=== PATIENT | female | born 1955 | race Caucasian/White ===

== ENCOUNTER 2016-10-28 11:56 | Emergency (ER) | payer BC ==
[2016-10-28 12:03] VITALS: TEMP 97.8; BMI 26.6
[2016-10-28] MEDS ORDERED: SODIUM CHLORIDE 1,000 ML IV STA (12:25)
[2016-10-28] MEDS ORDERED: ONDANSETRON 4 MG/2 ML VIAL IVPUSH ONE (12:25)
[2016-10-28] MEDS ORDERED: ACETAMINOPHEN 1000 MG/100 ML VIAL (NON FORMULARY) IVPB ONE (12:25)
[2016-10-28] MEDS ORDERED: ACETAMINOPHEN INJECTION 100 ML IVPB ONE (12:49)
[2016-10-28] MEDS ORDERED: ONDANSETRON 4 MG/2 ML VIAL ONE (12:49)
--- NOTE | 2016-10-28 13:00 | PDOC ---
History of Present Illness - General Chief Complaint: Headache Stated Complaint: NAUSEA, HEAD PRESSURE Time Seen by Provider: 10/28/16 11:59 History Source: Patient Exam Limitations: No Limitations - History of Present Illness Initial Comments: 10/28/16 12:31 61-year-old female presents to the emergency department with complaints of generalized throbbing pressure that began 3 days ago and has worsened in severity. Patient also complaining now of nausea generalized fatigue, and increased anxiety. Patient states also was switched from Paxil to her Prozac this week secondary to waking. Patient has no complaints of chest pain, shortness of breath, visual changes, dizziness, or abdominal pain. Patient also denies recent head injury, recent surgery, or recent illness. Timing/Duration: reports: constant Severity: Yes: moderate Associated Symptoms: reports: nausea/vomiting. denies: slurred speech, trouble walking, vision changes, weakness Past History - Travel Traveled outside of the country in the last 30 days: No - Past Medical History Allergies/Adverse Reactions: Allergies Allergy/AdvReac Type Severity Reaction Status Date / Time Penicillins Allergy Verified 10/28/16 12:03 Home Medications: Ambulatory Orders Atenolol [Tenormin -] 25 mg PO DAILY 10/28/16 Celecoxib 200 mg PO BID 10/28/16 Fluoxetine HCl 40 mg PO DAILY 10/28/16 Folic Acid 1 mg PO DAILY 10/28/16 Methotrexate [Mexate -] 2.5 mg PO WEEKLY 10/28/16 Sulfamethoxazole/Trimethoprim [Bactrim Ds -] 1 tab PO BID #10 tablet 10/28/16 [address]alazine [Sulfasalazine Dr] 500 mg PO BID 10/28/16 Cancer: Yes (cervical) Disorders: Yes (one kidney) HTN: Yes Psychiatric Problems: Yes (anxiety,depression) - Psycho/Social/Smoking Cessation Hx Suicidal Ideation: No Smoking History: Never smoked Information on smoking cessation initiated: No Hx Alcohol Use: No Drug/Substance Use Hx: No Substance Use Type: None Patient Lives Alone: No Lives with/in: son Neuro Specific PMHX - Complaint Specific PMHX Migraine: No Neuropathy: No Review of Systems - Review of Systems Able to Perform ROS?: No Constitutional: Yes: Weakness (mild generalized) HEENTM: No: Symptoms Reported, Blurred Vision Respiratory: No: Symptoms reported Cardiac (ROS): No: Symptoms Reported ABD/GI: Yes: Nausea : No: Symptoms Reported Musculoskeletal: No: Symptoms Reported Integumentary: No: Symptoms Reported Neurological: Yes: Headache. No: Numbness, Weakness, Dizziness Endocrine: No: Symptoms Reported Hematologic/Lymphatic: No: Symptoms Reported *Physical Exam - Vital Signs Last Vital Signs Temp Pulse Resp BP Pulse Ox 97.8 F 79 19 154/88 100 10/28/16 12:01 10/28/16 12:01 10/28/16 12:10/28/16 12:10/28/16 12:01 - Physical Exam General Appearance: Yes: Nourished, Appropriately Dressed. No: Apparent Distress HEENT: positive: EOMI, BRIAN, TMs Normal, Pharynx Normal. negative: Pale Conjunctivae Neck: positive: Supple. negative: Tender, Decreased range of motion Respiratory/Chest: positive: Lungs Clear, Normal Breath Sounds. negative: Respiratory Distress, Accessory Muscle Use Cardiovascular: positive: Regular Rhythm, Regular Rate. negative: Murmur Gastrointestinal/Abdominal: positive: Soft. negative: Tenderness Extremity: positive: Normal Capillary Refill. negative: Pedal Edema Integumentary: positive: Normal Color, Warm, Moist Neurologic: positive: Motor Strength 5/5 (ambulatory). negative: Normal Mood/ Affect (anxious) ED Treatment Course - LABORATORY CBC & Chemistry Diagram: 10/28/16 13:05 10/28/16 13:05 - RADIOLOGY Radiology Studies Ordered: Category Date Time Status HEAD CT WITHOUT CONTRAST [CT] Stat CT Scan 10/28/16 12:25 Ordered CHEST X-RAY PORTABLE* [RAD] Stat Radiology 10/28/16 12:25 Completed Medical Decision Making - Medical Decision Making 10/28/16 13:06 Patient here for evaluation of headache for the past 2 days worsening severity. Patient states has not taking anything for the above and feels her medication changed from Paxil to Prozac is the cause of her problem. Patient complains of mild generalized weakness along with nausea patient hasn't had no acute findings. Patient ordered for labs, cardiac workup, head CT, IV fluids, urine IV Tylenol and Zofran. 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 10/28/16 14:08 Laboratory Tests 10/28/16 10/28/16 10/28/16 13:05 13:05 13:05 WBC 4.2 Hgb 12.8 Hct 38.7 RDW 15.7 H D Plt Count 193 D Neutrophils % 64.9 Sodium 140 Potassium 4.0 Chloride 104 Carbon Dioxide 28 Anion Gap 8 Creatinine 0.7 Creat Clearance w eGFR > 60 Random Glucose 91 Calcium 8.8 Magnesium 2.2 ALT 16 Alkaline Phosphatase 89 Troponin I < 0.02 Urine Ketones Negative Urine Nitrite Negative Urine Bilirubin Negative Ur Leukocyte Esterase 1+ H D Head CT shows no acute intracranial hemorrhage, mass effect or hydrocephalus. Noted was a single sphenoid sinus an anatomic variant with small fluid level and mild mucosal thickening. Patient on exam had no tenderness over the sinuses or complaints of nasal congestion or rhinorrhea 10/28/16 14:30 Laboratory Tests 10/28/16 13:05 Ur Leukocyte Esterase 1+ H D Urine WBC 34 Urine cx collected and sent. Pt states feeling much better. Discharge home with bactrim x3 days. No previous UA cx noted in computer. 10/28/16 14:36 *DC/Admit/Observation/Transfer Diagnosis at time of Disposition: UTI (urinary tract infection) Qualifiers: Urinary tract infection type: acute cystitis Hematuria presence: without hematuria Qualified Code(s): N30.00 - Acute cystitis without hematuria UTI (urinary tract infection) Qualifiers: Urinary tract infection type: acute cystitis Hematuria presence: without hematuria Qualified Code(s): N30.00 - Acute cystitis without hematuria - Discharge Dispostion Disposition: HOME Condition at time of disposition: Improved - Prescriptions Prescriptions: Sulfamethoxazole/Trimethoprim [Bactrim Ds -] 1 tab PO BID #10 tablet - Referrals Referrals: Deja Reyes MD [Primary Care Provider] - - Patient Instructions Printed Discharge Instructions: DI for Urinary Tract Infection (UTI) Additional Instructions: Please take antibiotics as prescribed and if symptoms continue or worsen please return to the ED . otherwise follow up with her primary care physician drink plenty of fluids.
[2016-10-28 13:21] LABS: BASOPHIL 0.9 % (0-2.0); EOSINOPHIL 3.1 % (0-4.5); MCH 30.7 pg (25.7-33.7); MEAN CELL VOLUME 93.1 fl (80-96); MEAN PLT VOLUME 8.1 fl (7.5-11.1); NEUTROPHILS 64.9 % (42.8-82.8); PLATELET COUNT 193 K/MM3 (134-434); RDW 15.7 % (11.6-15.6); WHITE BLOOD COUNT 4.2 K/mm3 (4.0-10.0)
[2016-10-28 13:27] LABS: URINE APPEARANCE CLEAR; URINE BILIRUBIN NEGATIVE (NEGATIVE); URINE BLOOD NEGATIVE (NEGATIVE); URINE COLOR LT. YELLOW; URINE GLUCOSE (UA) NEGATIVE (NEGATIVE); URINE KETONE NEGATIVE (NEGATIVE); URINE NITRITE NEGATIVE (NEGATIVE); URINE PROTEIN NEGATIVE (NEGATIVE); URINE UROBILINOGEN 0.2 mg/dL (0.2-1.0)
[2016-10-28 13:28] LABS: URINE LEUK ESTERASE 1+ (NEGATIVE)
[2016-10-28 13:53] LABS: ALBUMIN 4.3 g/dl (3.4-5.0); ANION GAP 8 (8-16); BILIRUBIN,TOTAL 0.6 mg/dL (0.2-1.0); CALCIUM 8.8 mg/dL (8.5-10.1); CO2 28 mmol/L (21-32); CREATININE 0.7 mg/dL (0.55-1.02); GLUCOSE,RANDOM 91 mg/dL (74-106); MAGNESIUM 2.2 mg/dL (1.8-2.4); SGOT/AST 11 U/L (15-37); SGPT/ALT 16 U/L (12-78)
[2016-10-28 13:56] LABS: ALK PHOS 89 U/L (45-117); CPK 60 IU/L (26-192); TROPONIN I < 0.02 ng/ml (0.00-0.05)
[2016-10-28 14:09] LABS: URINE BACTERIA RARE /hpf (NONE SEEN); URINE MUCUS RARE; URINE RBC <1 /hpf (0-3); URINE WBC 34 /hpf (3-5)
[2016-10-28 14:52] VITALS: BP 148/89; PULSE 66
--- NOTE | 2016-10-29 13:22 | EKG ---
Test Reason : Blood Pressure : / mmHG Vent. Rate : 066 BPM Atrial Rate : 066 BPM P-R Int : 172 ms QRS Dur : 066 ms QT Int : 444 ms P-R-T Axes : 049 014 030 degrees QTc Int : 465 ms NORMAL SINUS RHYTHM BASELINE ARTIFACTS LOW VOLTAGE QRS BORDERLINE ECG WHEN COMPARED WITH ECG OF 21-MAY-2010 14:22, NO SIGNIFICANT CHANGE WAS FOUND REPEAT EKG IF CLINICALLY INDICATED Confirmed by MANE ESPARZA MD ([id number]) on 10/29/2016 1:22:01 PM Referred By: Confirmed By:MANE ESPARZA MD
== END 2016-10-28 14:51 | disposition home or self-care (01) ==
LOC: JER 11:56
PROC: 3E033NZ Introduction of Analgesics, Hypnotics, Sedatives into Peripheral Vein, Percutaneous Approach (ICD-10-PCS; principal; 2016-10-28)
PROC: 3E033GC Introduction of Other Therapeutic Substance into Peripheral Vein, Percutaneous Approach (ICD-10-PCS; 2016-10-28)
DX: N30.00 Acute cystitis without hematuria (principal); I10 Essential (primary) hypertension; F41.8 Other specified anxiety disorders; Z90.5 Acquired absence of kidney
CPT/HCPCS: 36415; 70450-TC; 71010-TC; 80053; 81003; 81015; 83735; 84484; 85025; 87086; 93005; 93010; 99283-25

== ENCOUNTER 2018-07-01 16:52 | Observation (INO) | payer BC ==
[2018-07-01 17:09] VITALS: BMI 24.0
--- NOTE | 2018-07-01 17:29 | PDOC ---
History of Present Illness - General Chief Complaint: Syncope/Near Syncope Stated Complaint: FAINTING, NAUSEA, VOMITTING Time Seen by Provider: 07/01/18 17:09 - History of Present Illness Initial Comments: 63yo F with PMH of HTN, tachyarrhythmia s/p ablation, cervical CA, depression presenting after a syncopal episodes. Patient states that around 3:30pm, she got up from the couch and suddenly felt very faint. The episode occurred around 3:30-4pm as the patient was getting up from the couch. Patient describes feeling lightheaded and sat back down on the couch. She believes she lost consciousness for a couple seconds but there were no witnesses. Reports urinary incontinence and significant diaphoresis during the episode. Made her way to the bathroom and had an episode of diarrhea. Patient also felt faint at that time, so she laid on the floor in case she might fall. Patient has had previous episodes of syncope, most recently six years ago also with associated urinary incontinence, nausea, vomiting, and diaphoresis, but no diarrhea. No history of seizure. Patient endorses one month of weakness, palpitations, and dyspnea on exertion. Had the flu three weeks ago and was treated with tamiflu. Denies fever , shortness of breath, or chest pain. PCP: Dr. Reyes Cardio: Dr. Wheatley Past History - Past Medical History Allergies/Adverse Reactions: Allergies Allergy/AdvReac Type Severity Reaction Status Date / Time Penicillins Allergy Verified 07/01/18 17:04 Home Medications: Ambulatory Orders Atenolol [Tenormin -] 25 mg PO DAILY 10/28/16 Celecoxib 200 mg PO BID 10/28/16 Fluoxetine HCl 40 mg PO DAILY 10/28/16 Folic Acid 1 mg PO DAILY 10/28/16 Methotrexate [Mexate -] 2.5 mg PO WEEKLY 10/28/16 Sulfamethoxazole/Trimethoprim [Bactrim Ds -] 1 tab PO BID #10 tablet 10/28/16 [address]ulf[address]alazine [Sulfasalazine Dr] 500 mg PO BID 10/28/16 Cancer: Yes (cervical) Disorders: Yes (one kidney) HTN: Yes Psychiatric Problems: Yes (anxiety,depression) - Suicide/Smoking/Psychosocial Hx Smoking History: Current some day smoker Number of Cigarettes Smoked Daily: 2 Information on smoking cessation initiated: No Hx Alcohol Use: No Drug/Substance Use Hx: No Substance Use Type: None Review of Systems - Review of Systems Comments:: Constitutional: no fever, +diaphoresis HEENT: no throat pain, no dysphagia Cardiovascular: no chest pain, +palpitations Respiratory: no cough, no shortness of breath Gastrointestinal: +nausea, +vomiting Genitourinary: no dysuria, no frequency Musculoskeletal: no myalgia, no arthralgia Skin: no rash, no itching Neurologic: no headache, +weakness *Physical Exam - Vital Signs Last Vital Signs Temp Pulse Resp BP Pulse Ox 98.3 F 67 16 187/83 H 98 07/01/18 17:00 07/01/18 17:00 07/01/18 17:00 07/01/18 17:00 07/01/18 17:10 - Physical Exam Comments: General: Awake, alert, and fully oriented, in no acute distress Head: No signs of trauma Eyes: EOMI, sclera anicteric ENT: Moist mucus membranes Neck: Normal ROM, supple Lungs: Lungs clear, Normal breath sounds Cardio: Regular rhythm, S1 and S2 present Abdomen: Soft, nontender. No guarding, no rebound, no masses Extremities: Normal range of motion, Distal pulses present SKIN: Warm, Dry, normal turgor Neurologic: Cranial nerves II through XII grossly intact ED Treatment Course - LABORATORY CBC & Chemistry Diagram: 07/01/18 17:35 07/01/18 17:35 Medical Decision Making - Medical Decision Making 63yo F with PMH of HTN, cervical CA, depression presenting after a syncopal episodes. DDX including but not limited to vasovagal syncope, cardiogenic syncope, metabolic syncope, neurogenic syncope, postural syncope, seizure Labs EKG, CXR 1L NS, 10mg Reglan 07/01/18 17:34 EKG: rate 63, QTc 448, NSR BP Laying 158/87 BP Standing 145/104 Positive for orthostatic hypotension given fall in diastolic > 10mmHg 07/01/18 17:56 CBC WBC 6.0 K/mm3 (4.0-10.0) 07/01/18 17:35 RBC 4.93 M/mm3 (3.60-5.2) 07/01/18 17:35 Hgb 14.3 GM/dL (10.7-15.3) 07/01/18 17:35 Hct 43.0 % (32.4-45.2) 07/01/18 17:35 MCV 87.3 fl (80-96) 07/01/18 17:35 MCH 29.1 pg (25.7-33.7) 07/01/18 17:35 MCHC 33.3 g/dl (32.0-36.0) 07/01/18 17:35 RDW 15.0 % (11.6-15.6) 07/01/18 17:35 Plt Count 201 K/MM3 (134-434) 07/01/18 17:35 MPV 8.6 fl (7.5-11.1) 07/01/18 17:35 Absolute Neuts (auto) 4.7 K/mm3 (1.5-8.0) 07/01/18 17:35 Neutrophils % 77.9 % (42.8-82.8) D 07/01/18 17:35 Lymphocytes % 15.8 % (8-40) D 07/01/18 17:35 Monocytes % 4.3 % (3.8-10.2) 07/01/18 17:35 Eosinophils % 1.5 % (0-4.5) 07/01/18 17:35 Basophils % 0.5 % (0-2.0) 07/01/18 17:35 Nucleated RBC % 0 % (0-0) 07/01/18 17:35 No anemia or leukocytosis CMP Sodium 140 mmol/L (136-145) 07/01/18 17:35 Potassium 4.4 mmol/L (3.5-5.1) 07/01/18 17:35 Chloride 105 mmol/L (98-107) 07/01/18 17:35 Carbon Dioxide 29 mmol/L (21-32) 07/01/18 17:35 Anion Gap 6 MMOL/L (8-16) L 07/01/18 17:35 BUN 19 mg/dL (7-18) H 07/01/18 17:35 Creatinine 0.9 mg/dL (0.55-1.3) 07/01/18 17:35 Creat Clearance w eGFR 63.04 (>60) 07/01/18 17:35 Random Glucose 106 mg/dL (74-106) 07/01/18 17:35 Calcium 9.0 mg/dL (8.5-10.1) 07/01/18 17:35 Total Bilirubin 0.6 mg/dL (0.2-1) 07/01/18 17:35 AST 11 U/L (15-37) L 07/01/18 17:35 ALT 16 U/L (13-61) 07/01/18 17:35 Alkaline Phosphatase 93 U/L (45-117) 07/01/18 17:35 Creatine Kinase 44 U/L (26-192) 07/01/18 17:35 Troponin I < 0.02 ng/ml (0.00-0.05) 07/01/18 17:35 Total Protein 7.3 g/dl (6.4-8.2) 07/01/18 17:35 Albumin 4.1 g/dl (3.4-5.0) 07/01/18 17:35 Lipase 172 U/L (73-393) 07/01/18 17:35 TSH 1.72 uIU/ml (0.358-3.74) 07/01/18 17:35 Tpn undetectable TSH is within normal limits Electrolytes unremarkable CXR without acute pathology, my impression 07/01/18 18:[address] Sheppard who is covering for Dr. Wheatley's patients who recommended patient for telemetry. 07/01/18 19:03 Discussed case with SOHEILA Castellanos who accepted patient for admission under Dr. López 07/01/18 19:23 *DC/Admit/Observation/Transfer Diagnosis at time of Disposition: Syncope Qualifiers: Syncope type: unspecified Qualified Code(s): R55 - Syncope and collapse - Discharge Dispostion Condition at time of disposition: Guarded Decision to Admit order: Yes - Referrals - Patient Instructions - Post Discharge Activity
[2018-07-01] MEDS ORDERED: SODIUM CHLORIDE 1,000 ML IV STA (17:30)
[2018-07-01] MEDS ORDERED: METOCLOPRAMIDE HCL INJECTION 10 MG/2 ML VIAL IVPUSH ONE (17:30)
[2018-07-01] MEDS ORDERED: METOCLOPRAMIDE HCL INJECTION 10 MG/2 ML VIAL ONE (17:36)
[2018-07-01 18:09] LABS: BASO % 0.5 % (0-2.0); EOS % 1.5 % (0-4.5); HEMOGLOBIN 14.3 GM/dL (10.7-15.3); LYMPH % 15.8 % (8-40); MCH 29.1 pg (25.7-33.7); MCHC 33.3 g/dl (32.0-36.0); MEAN CELL VOLUME 87.3 fl (80-96); MEAN PLT VOLUME 8.6 fl (7.5-11.1); MONO % 4.3 % (3.8-10.2); NEUT % 77.9 % (42.8-82.8); PLATELET COUNT 201 K/MM3 (134-434); RBC 4.93 M/mm3 (3.60-5.2)
[2018-07-01 18:38] LABS: ALBUMIN 4.1 g/dl (3.4-5.0); ALK PHOS 93 U/L (45-117); ANION GAP 6 MMOL/L (8-16); BILIRUBIN,TOTAL 0.6 mg/dL (0.2-1); BLOOD UREA NITROGEN 19 mg/dL (7-18); CHLORIDE 105 mmol/L (98-107); CO2 29 mmol/L (21-32); CREATININE 0.9 mg/dL (0.55-1.3); GLUCOSE,RANDOM 106 mg/dL (74-106); LIPASE 172 U/L (73-393); POTASSIUM 4.4 mmol/L (3.5-5.1); SGOT/AST 11 U/L (15-37); SGPT/ALT 16 U/L (13-61); SODIUM 140 mmol/L (136-145); TOT PROT 7.3 g/dl (6.4-8.2)
--- NOTE | 2018-07-01 19:08 | CON.CARD ---
Consult Consult Specialty:: Cardiology - History of Present Illness Chief Complaint: near syncope History of Present Illness: 63yo F with PMH of HTN, tachyarrhythmia s/p ablation, cervical CA, depression presenting after a syncopal episodes. Patient states that around 3:30pm, she got up from the couch and suddenly felt very faint. The episode occurred around 3:30-4pm as the patient was getting up from the couch. Patient describes feeling lightheaded and sat back down on the couch. She believes she lost consciousness for a couple seconds but there were no witnesses. Reports urinary incontinence and significant diaphoresis during the episode. Made her way to the bathroom and had an episode of diarrhea. Patient also felt faint at that time, so she laid on the floor in case she might fall. Patient has had previous episodes of syncope, most recently six years ago also with associated urinary incontinence, nausea, vomiting, and diaphoresis, but no diarrhea. No history of seizure. Patient endorses one month of weakness, palpitations, and dyspnea on exertion. Had the flu three weeks ago and was treated with tamiflu. Denies fever , shortness of breath, or chest pain. PCP: Dr. Reyes Cardio: Dr. Wheatley - History Source History Provided By: Medical Record - Alcohol/Substance Use Hx Alcohol Use: No - Smoking History Smoking history: Current some day smoker Aproximately how many cigarettes per day: 2 Home Medications - Allergies Allergies/Adverse Reactions: Allergies Allergy/AdvReac Type Severity Reaction Status Date / Time Penicillins Allergy Verified 07/01/18 17:04 - Home Medications Home Medications: Ambulatory Orders Atenolol [Tenormin -] 25 mg PO DAILY 10/28/16 Celecoxib 200 mg PO BID 10/28/16 Fluoxetine HCl 40 mg PO DAILY 10/28/16 Folic Acid 1 mg PO DAILY 10/28/16 Methotrexate [Mexate -] 2.5 mg PO WEEKLY 10/28/16 Sulfamethoxazole/Trimethoprim [Bactrim DS -] 1 tab PO BID #10 tablet 10/28/16 Sulf[address]alazine [Sulfasalazine Dr] 500 mg PO BID 10/28/16 Review of Systems - Review of Systems Constitutional: reports: No Symptoms Eyes: reports: No Symptoms HENT: reports: No Symptoms Neck: reports: No Symptoms Cardiovascular: reports: No Symptoms Gastrointestinal: reports: No Symptoms Genitourinary: reports: No Symptoms Breasts: reports: No Symptoms Reported Musculoskeletal: reports: No Symptoms Integumentary: reports: No Symptoms Neurological: reports: Syncope Endocrine: reports: No Symptoms Hematology/Lymphatic: reports: No Symptoms Psychiatric: reports: No Symptoms Vital Signs: Vital Signs Temperature 98.3 F 07/01/18 17:00 Pulse Rate 64 07/01/18 18:01 Respiratory Rate 16 07/01/18 17:00 Blood Pressure 156/86 07/01/18 18:01 O2 Sat by Pulse Oximetry (%) 98 07/01/18 17:10 Constitutional: Yes: Well Nourished, No Distress, Calm Eyes: Yes: WNL, Conjunctiva Clear, EOM Intact HENT: Yes: WNL, Atraumatic, Normocephalic Neck: Yes: WNL, Supple, Trachea Midline Respiratory: Yes: WNL, Regular, CTA Bilaterally Gastrointestinal: Yes: WNL, Normal Bowel Sounds Renal/: Yes: WNL Cardiovascular: Yes: WNL, Regular Rate and Rhythm Musculoskeletal: Yes: WNL Extremities: Yes: WNL Integumentary: Yes: WNL Neurological: Yes: WNL, Alert, Oriented ...Motor Strength: WNL Psychiatric: Yes: WNL, Alert, Oriented - Other Data Labs, Other Data: CBC, BMP 07/01/18 17:35 07/01/18 17:35 Troponin, BNP 07/01/18 17:35 Troponin I < 0.02 Troponin, BNP 07/01/18 17:35 Troponin I < 0.02 Imaging - Results Chest X-ray: Image Reviewed (no i/e) EKG: Image Reviewed (sr wnl) Problem List - Problems (1) Syncope Code(s): R55 - SYNCOPE AND COLLAPSE Qualifiers: Syncope type: unspecified Qualified Code(s): R55 - Syncope and collapse (2) UTI (urinary tract infection) Code(s): N39.0 - URINARY TRACT INFECTION, SITE NOT SPECIFIED Qualifiers: Urinary tract infection type: acute cystitis Hematuria presence: without hematuria Qualified Code(s): N30.00 - Acute cystitis without hematuria Assessment/Plan 63yo F with PMH of HTN, tachyarrhythmia s/p ablation, cervical CA, depression presenting after a syncopal episodes Plan echo c. duplex neuro eval telemetry r/o mi
--- NOTE | 2018-07-01 19:35 | PDOC ---
Documentation entered by Leslye Hernández SCRIBE, acting as scribe for Pam Meade MD. Pam Meade MD: This documentation has been prepared by the Betty butcher Daisy, SCRIBE, under my direction and personally reviewed by me in its entirety. I confirm that the documentation accurately reflects all work, treatment, procedures, and medical decision making performed by me. Attending Attestation - Resident Resident Name: Ariadna Reyna - ED Attending Attestation I have performed the following: I have examined & evaluated the patient, The case was reviewed & discussed with the resident, I agree w/resident's findings & plan - HPI HPI: 07/01/18 17:35 The patient is a 63 YOF with a PMH of HTN and cervical CA who presents to the ER s/p syncopal episode at around 4PM today. Patient reports that around this time she began to feel faint and then had one episode of urinary incontinence. Patient subsequently proceeded to the bathroom and had one episode of NB diarrhea. The patient reports that she had a syncopal episode shortly after, but is unsure if she lost consciousness. She also endorses diaphoresis and 1 episode of NB, NB vomit. Patient is now complaining of feeling weak, but otherwise denies any other symptoms. Patient was otherwise in her usual state of health. Gum Maker: Dr. Wheatley - Physicial Exam PE: 07/01/18 18:59 wnwd 63 yo female fainted today then has urinary incontinence then went to the bathroom and vomiting and had diarrhea 07/01/18 19:01 wnwd 63 yo resting comfortably on the gurney head ncat neck supple lungs cta b/l cvs [id number] abd nontender ext no edema skin warm and dry no cva tenderness neuro axox3,ambulatory - Medical Decision Making 07/01/18 19:34 Dr Reyna spoke w Dr Carney and agrees with tele OBS for syncope first troponin negative
--- NOTE | 2018-07-01 21:16 | HP ---
CHIEF COMPLAINT: unwitnessed syncopy with loss of consciousness and urinary incontinence PCP:Dr. Reyes HISTORY OF PRESENT ILLNESS: 63 year old female with past medical history of tachyarrhythmia s/p ablation, cervical cancer and depression who presented after an unwitnessed syncopal episode with loss of consciousness for a few seconds and loss of urinary incontinence. Patient reported around 3:30pm she got up from the couch and suddenly felt very faint associated with diaphoresis and diarrhea. Patient has had a previous episode of syncopy six years ago also associated with urinary incontinence, nausea, vomiting, and diaphoresis, but no diarrhea. She reported she was seen by Cardiology and workup with Holter monitor was negative. Patient reported one month of weakness, palpitations and dyspnea on exertion. She reported she had the flu three weeks ago and she was treated with tamiflu. She denied fever, shortness of breath, or chest pain. Upon evaluation in the ER she was hypertensive. She had a first normal troponin. EKG showed a normal sinus rhythm with no significant findings. She is being admitted to telemetry for further cardiac monitoring and neurological evaluation. Recent Travel:denies PAST MEDICAL HISTORY: tachyarrhythmia s/p ablation cervical cancer depression PAST SURGICAL HISTORY: none Social History: Smoking:denies Alcohol:denies Drugs: denies Family History: noncontributory Allergies Penicillins Allergy (Verified 07/01/18 17:04) HOME MEDICATIONS: Home Medications Medication Instructions Recorded Atenolol [Tenormin -] 25 mg PO DAILY 10/28/16 Celecoxib 200 mg PO BID 10/28/16 Fluoxetine HCl 40 mg PO DAILY 10/28/16 Folic Acid 1 mg PO DAILY 10/28/16 Methotrexate [Mexate -] 2.5 mg PO WEEKLY 10/28/16 Sulfamethoxazole/Trimethoprim 1 tab PO BID #10 tablet 10/28/16 [Bactrim Ds -] Sulfasalazine [Sulfasalazine Dr] 500 mg PO BID 10/28/16 REVIEW OF SYSTEMS CONSTITUTIONAL: Absent: fever, chills, diaphoresis, generalized weakness, malaise, loss of appetite, weight change HEENT: Absent: rhinorrhea, nasal congestion, throat pain, throat swelling, difficulty swallowing, mouth swelling, ear pain, eye pain, visual changes CARDIOVASCULAR: Absent: chest pain, syncope, palpitations, irregular heart rate, lightheadedness , peripheral edema RESPIRATORY: Absent: cough, shortness of breath, dyspnea with exertion, orthopnea, wheezing, stridor, hemoptysis GASTROINTESTINAL: Absent: abdominal pain, abdominal distension, nausea, vomiting, diarrhea, constipation, melena, hematochezia, urinary incontinence GENITOURINARY: Absent: dysuria, frequency, urgency, hesitancy, hematuria, flank pain, genital pain MUSCULOSKELETAL: Absent: myalgia, arthralgia, joint swelling, back pain, neck pain SKIN: Absent: rash, itching, pallor HEMATOLOGIC/IMMUNOLOGIC: Absent: easy bleeding, easy bruising, lymphadenopathy, frequent infections ENDOCRINE: Absent: unexplained weight gain, unexplained weight loss, heat intolerance, cold intolerance NEUROLOGIC: Absent: headache, focal weakness or paresthesias, dizziness, unsteady gait, seizure, mental status changes, bladder or bowel incontinence PSYCHIATRIC: Absent: anxiety, depression, suicidal or homicidal ideation, hallucinations. PHYSICAL EXAMINATION Vital Signs - 24 hr 07/01/18 07/01/18 07/01/18 17:00 17:10 18:01 Temperature 98.3 F Pulse Rate 67 Pulse Rate [ 65 Right side Sitting] Pulse Rate [ 72 Right side Standing] Pulse Rate [ 64 Right side Supine] Respiratory 16 Rate Blood Pressure 187/83 H Blood Pressure 158/87 [Right side Sitting] Blood Pressure 145/104 H [Right side Standing] Blood Pressure 156/86 [Right side Supine] O2 Sat by Pulse 99 98 Oximetry (%) GENERAL: awake alert and fully oriented no acute distress HEAD: normal with no signs of trauma EYES: pupils equal round and reactive to light EARS, NOSE, THROAT: ears normal nares patent NECK: normal range of motion supple LUNGS: breath sounds equal clear to auscultation bilaterally no wheezes and no crackles no accessory muscle use HEART: regular rate and rhythm normal S1 and S2 no murmur ABDOMEN: soft nontender not distended normoactive bowel sounds MUSCULOSKELETAL: normal range of motion at all joints UPPER EXTREMITIES: 2+ pulses, warm, well-perfused no cyanosis LOWER EXTREMITIES: 2+ pulses, warm, well-perfused no pitting edema NEUROLOGICAL: normal speech PSYCHIATRIC: cooperative SKIN: warm dry normal turgor no rashes or lesions noted normal capillary refill Laboratory Results - last 24 hr 07/01/18 07/01/18 07/01/18 17:35 17:35 17:35 WBC 6.0 RBC 4.93 Hgb 14.3 Hct 43.0 MCV 87.3 MCH 29.1 MCHC 33.3 RDW 15.0 Plt Count 201 MPV 8.6 Absolute Neuts (auto) 4.7 Neutrophils % 77.9 D Lymphocytes % 15.8 D Monocytes % 4.3 Eosinophils % 1.5 Basophils % 0.5 Nucleated RBC % 0 Sodium 140 Potassium 4.4 Chloride 105 Carbon Dioxide 29 Anion Gap 6 L BUN 19 H Creatinine 0.9 Creat Clearance w eGFR 63.04 Random Glucose 106 Calcium 9.0 Total Bilirubin 0.6 AST 11 L ALT 16 Alkaline Phosphatase 93 Creatine Kinase 44 Troponin I < 0.02 Albumin 4.1 Lipase 172 TSH 1.72 ASSESSMENT/PLAN: 63 year old female with past medical history of tachyarrhythmia s/p ablation, cervical cancer, and depression who presented after an unwitnessed syncopal episode with loss of consciousness for a few seconds and loss of urinary incontinence. She reported drinking an inadequate amount of fluids. Labs are unremarkable. She was found to have orthostatis. Syncopy She has a normal troponin. EKG showing normal sinus rhythm with no ectopy. Admit to observation to telemetry. Continue to trend troponins. Check UA. Continue with neuro checks every 6 hours. Check carotid dopplers. Cardiology Consulted-Dr. Muñoz. Neurology Consulted- Dr. Anderson. History of Tachyarrthymia No evidence of tachycardia. Continue with atenolol for rate control. TSH is normal. Hypertension Initially hypertensive on admission,bp now improved +orthostasis Continue with atenolol 25mg daily. Depression Continue with prozac. DVT TEDs and lovenox 40mg once daily Visit type - Emergency Visit Emergency Visit: No - New Patient This patient is new to me today: Yes Date on this admission: 07/01/18 - Critical Care Critical Care patient: No
[2018-07-01 23:00] LABS: EPI CELLS 2.4 /HPF (0-5/HPF); URINE APPEARANCE CLEAR; URINE BACTERIA 16.4 /hpf (NEGATIVE); URINE BILIRUBIN NEGATIVE (NEGATIVE); URINE CASTS 3 /lpf (0-8); URINE COLOR YELLOW; URINE GLUCOSE (UA) NEGATIVE (NEGATIVE); URINE KETONE TRACE (NEGATIVE); URINE LEUK ESTERASE 3+ (NEGATIVE); URINE NITRITE NEGATIVE (NEGATIVE); URINE PROTEIN NEGATIVE (NEGATIVE); URINE RBC 1 /hpf (0-4); URINE UROBILINOGEN 0.2 mg/dL (0.2-1.0); URINE WBC 11 /hpf (0-5)
[2018-07-01] MEDS: CELECOXIB 200 MG CAPSULE PO SCH (23:04)
[2018-07-02 08:14] VITALS: BP 144/77; PULSE 70; TEMP 98.4
--- NOTE | 2018-07-02 09:27 | PN ---
Progress Note (short form) - Note Progress Note: feels well,syncopal episode sounds vasovagal by history. carotid US and serial enzymes are negative, if echo is ok, can dc home. CBC, BMP 07/01/18 17:35 07/01/18 17:35 Vital Signs Period Temp Pulse Resp BP Sys/Carlson Pulse Ox Last 24 Hr 98.3 F-98.5 F 60-72 16-16 144-187/77-104 98-99 S1s2 lungs cta abd soft nt no edema aaox3 non focal
[2018-07-02] MEDS ORDERED: ATENOLOL 25 MG TABLET (FP) PO SCH (10:00)
--- NOTE | 2018-07-02 10:00 | EKG ---
Test Reason : Blood Pressure : / mmHG Vent. Rate : 063 BPM Atrial Rate : 063 BPM P-R Int : 148 ms QRS Dur : 066 ms QT Int : 438 ms P-R-T Axes : 047 037 052 degrees QTc Int : 448 ms NORMAL SINUS RHYTHM NORMAL ECG WHEN COMPARED WITH ECG OF 28-OCT-2016 13:00, NO SIGNIFICANT CHANGE WAS FOUND Confirmed by HARVEY RIOS MD ([id number]) on 07/02/2018 10:00:05 AM Referred By: Confirmed By:HARVEY RIOS MD
[2018-07-02 10:07] LABS: HEMATOCRIT 42.4 % (32.4-45.2); MCH 29.2 pg (25.7-33.7); MCHC 33.1 g/dl (32.0-36.0); MEAN CELL VOLUME 88.2 fl (80-96); MEAN PLT VOLUME 8.4 fl (7.5-11.1); PLATELET COUNT 204 K/MM3 (134-434); RBC 4.81 M/mm3 (3.60-5.2); RDW 14.9 % (11.6-15.6); WHITE BLOOD COUNT 4.1 K/mm3 (4.0-10.0)
[2018-07-02] MEDS ORDERED: PT OWN MED DRAWER 7, Y5N ONE (10:10)
[2018-07-02] MEDS: FLUoxetine HCL 20 MG CAPSULE (FP) PO SCH ×2 (10:13→10:20)
[2018-07-02] MEDS: CELECOXIB 200 MG CAPSULE PO SCH ×2 (10:13→10:18)
[2018-07-02] MEDS: FOLIC ACID 1 MG TABLET (FP) PO SCH ×2 (10:13→10:19)
[2018-07-02] MEDS: ENOXAPARIN NA (PORCINE) 40 MG/0.4 ML DISP.SYRIN SQ SCH ×2 (10:13→10:20)
--- NOTE | 2018-07-02 10:31 | ECHO ---
Name: BRENDA MELCHOR Exam:Adult Echocardiogram Study Date: 07/02/2018 09:05 AM Age: 63 yrs Reason For Study: SYNCOPE Height: 64 in Weight: 140 lb BSA: 1.7 m2 MMode/2D Measurements & Calculations IVSd: 0.78 cm Ao root diam: 2.4 cm LVIDd: 4.8 cm LA dimension: 3.4 cm LVIDs: 3.1 cm LVPWd: 0.80 cm EDV(Teich): 107.1 ml LVOT diam: 2.0 cm ESV(Teich): 37.2 ml LAV (MOD-bp): 49.1 ml TAPSE: 2.0 cm RV S Primo: 12.7 cm/sec Doppler Measurements & Calculations MV E max primo: 95.1 cm/sec Ao V2 max: 158.2 cm/sec MV A max primo: 112.5 cm/sec Ao max P.0 mmHg MV E/A: 0.85 Ao V2 mean: 111.4 cm/sec MV dec time: 0.13 sec Ao mean P.4 mmHg Ao V2 VTI: 37.3 cm PARESH(I,D): 2.1 cm2 PARESH(V,D): 2.0 cm2 LV V1 max P.0 mmHg SV(LVOT): 80.0 ml LV V1 mean P.1 mmHg LV V1 max: 99.4 cm/sec LV V1 mean: 67.6 cm/sec LV V1 VTI: 25.7 cm TR max primo: 254.5 cm/sec PI end-d primo: 80.1 cm/sec TR max P.0 mmHg Med Peak E' Primo: 7.1 cm/sec Med E/e': 13.4 Lat Peak E' Primo: 7.4 cm/sec Lat E/e': 12.9 Procedure A complete two-dimensional transthoracic echocardiogram was performed (2D, M-mode, Doppler and color flow Doppler). Left Ventricle The left ventricle is normal in size. Left ventricular systolic function is normal. Ejection Fraction = 60- 65%. No regional wall motion abnormalities noted. Right Ventricle The right ventricle is normal size. The right ventricular systolic function is normal. RV systolic TD I is 13 cm/s. Atria The left atrial size is normal. LA volume index is 29 ml/m2. Right atrial size is normal. Mitral Valve The mitral valve is normal in structure and function. There is mild to moderate mitral regurgitation. Tricuspid Valve The tricuspid valve is normal in structure and function. There is mild tricuspid regurgitation. Pulmo nary artery systolic pressure is at least 32 mmHg assuming RA pressure is 3 mmHg. Aortic Valve The aortic valve is normal in structure and function. No aortic regurgitation is present. Pulmonic Valve The pulmonic valve is not well visualized. Great Vessels The aortic root is normal size. Pericardium/Pleura There is no pericardial effusion. Interpretation Summary The left ventricle is normal in size. Left ventricular systolic function is normal. No regional wall motion abnormalities noted. Ejection Fraction = 60-65%. The right ventricular systolic function is normal. The left atrial size is normal. Right atrial size is normal. There is mild to moderate mitral regurgitation. There is mild tricuspid regurgitation. Pulmonary artery systolic pressure is at least 32 mmHg assuming RA pressure is 3 mmHg There is no pericardial effusion. Previous studyi is not available for comparison Eran Rodriguez MD 07/02/2018 10:31 AM
--- NOTE | 2018-07-02 10:32 | CONSULT ---
Consult - text type - Consultation Consultation Note: NEUROLOGY CONSULT GREATLY APPRECIATED: This 63 yo RH single woman lives with her son. PMHx includes HTN and depression, for which she takes atenolol 25 mg and lexapro 10 mg. Surgical hx includes bladder mesh, B/L carpal tunnel release (without sig improvement), cervical CA s/p D&C, tachyarrhythmia s/p ablation Presents after "dizziness" while going from sitting and standing, having to lower herself to floor with associated "sweating" and incontinence of urine. Then ambulated "like a drunk" to bathroom and, while having bowel movement, felt similar sensation of lightheadedness. Reports a prior episode 4 years ago, which occurred in the middle of the night, with associated tingling of the whole arm. ROS sig. for bruxism. Remote history of headaches, lessened after menopause at 57. + tinnitus and B/L hearing loss. Dx OA/Rheumatism 2005, tried methotrexone and Biologics with continued nocturnal "pains" in the neck, back, hands and insomnia. FH++ daughter with migraines, growing pains EKG NSR Carotid duplex: no sig. stenosis Head CT (10/28/16- done for "headache"): essentially normal study TSH 1.72 WBC UA= 11 JOHN: BP 156/104 supine, 158/87 sitting, 145/104 standing. Cor reg. No bruit. Neck supple. Neg SLR. S/P B/L CTR. NEURO: Awake, alert, OX x 3. CNII-CNXII: EOM's without nystagmus. Full allan. No facial. Motor: No drift. Strength normal. Reflexes normal. Toes downgoing. Coordination: No FTN dystaxia. Sensation: Normal to vibration. Romberg - Gait: Normal including heels, toes, tandem. Impression: Normal neurological exam Pre-syncopal episode (orthostatic, worsened by valsalva) Chronic labrynthritis Migraine Headaches - quiescent on atenolol 25 mg qd Nocturnal pains, insomnia and bruxism suggestive of Restless Limbs Syndrome (RLS) Suggest: Review prior rheumatologic workup and previous neuroimaging (done by neurologist in [place] for neck complaints) MRI of brain (C-), EEG as out-patient Neuro f/u for EMGs of the arms, legs and Rx for RLS. Thank you very much, Iain Anderson MD
[2018-07-02 10:40] LABS: ANION GAP 5 MMOL/L (8-16); BLOOD UREA NITROGEN 12 mg/dL (7-18); CHLORIDE 105 mmol/L (98-107); CO2 28 mmol/L (21-32); CREATININE 0.8 mg/dL (0.55-1.3); GLUCOSE,RANDOM 92 mg/dL (74-106); MAGNESIUM 2.7 mg/dL (1.8-2.4); POTASSIUM 4.5 mmol/L (3.5-5.1); SODIUM 138 mmol/L (136-145)
--- NOTE | 2018-07-02 13:09 | PN ---
Progress Note, Physician History of Present Illness: 63yo F with PMH of HTN, tachyarrhythmia s/p ablation, cervical CA, depression presenting after a syncopal episodes. Patient states that around 3:30pm, she got up from the couch and suddenly felt very faint. The episode occurred around 3:30-4pm as the patient was getting up from the couch. Patient describes feeling lightheaded and sat back down on the couch. She believes she lost consciousness for a couple seconds but there were no witnesses. Reports urinary incontinence and significant diaphoresis during the episode. Made her way to the bathroom and had an episode of diarrhea. Patient also felt faint at that time, so she laid on the floor in case she might fall. Patient has had previous episodes of syncope, most recently six years ago also with associated urinary incontinence, nausea, vomiting, and diaphoresis, but no diarrhea. No history of seizure. Patient endorses one month of weakness, palpitations, and dyspnea on exertion. Had the flu three weeks ago and was treated with tamiflu. Denies fever , shortness of breath, or chest pain. PCP: Dr. Reyes Cardio: Dr. Wheatley - Current Medication List Current Medications: Active Medications Atenolol (Tenormin -) 25 mg PO DAILY [facility] Last Admin: 07/02/18 10:13 Dose: 25 mg Celecoxib (Celebrex -) 200 mg PO BID [facility] Last Admin: 07/02/18 10:18 Dose: Not Given Enoxaparin Sodium (Lovenox -) 40 mg SQ DAILY [facility] Last Admin: 07/02/18 10:20 Dose: Not Given Fluoxetine HCl (Prozac -) 40 mg PO DAILY [facility] Last Admin: 07/02/18 10:20 Dose: Not Given Folic Acid (Folic Acid -) 1 mg PO DAILY [facility] Last Admin: 07/02/18 10:19 Dose: Not Given Sulfasalazine (Azulfidine En-Tabs -) 500 mg PO BID [facility] Last Admin: 07/02/18 10:18 Dose: Not Given - Objective Vital Signs: Vital Signs Temperature 98.4 F 07/02/18 08:10 Pulse Rate 70 07/02/18 08:10 Respiratory Rate 16 07/02/18 08:10 Blood Pressure 144/77 07/02/18 08:10 O2 Sat by Pulse Oximetry (%) 98 07/02/18 08:10 Eyes: Yes: WNL, Conjunctiva Clear, EOM Intact HENT: Yes: WNL, Atraumatic, Normocephalic Neck: Yes: WNL, Supple, Trachea Midline Cardiovascular: Yes: WNL, Regular Rate and Rhythm Respiratory: Yes: WNL, Regular, CTA Bilaterally Gastrointestinal: Yes: WNL, Normal Bowel Sounds Genitourinary: Yes: WNL Musculoskeletal: Yes: WNL Extremities: Yes: WNL Edema: No Integumentary: Yes: WNL Neurological: Yes: WNL, Alert, Oriented ...Motor Strength: WNL Psychiatric: Yes: WNL Labs: CBC, BMP 07/02/18 09:48 07/02/18 09:48 Problem List - Problems (1) Syncope Code(s): R55 - SYNCOPE AND COLLAPSE Qualifiers: Syncope type: unspecified Qualified Code(s): R55 - Syncope and collapse (2) UTI (urinary tract infection) Code(s): N39.0 - URINARY TRACT INFECTION, SITE NOT SPECIFIED Qualifiers: Urinary tract infection type: acute cystitis Hematuria presence: without hematuria Qualified Code(s): N30.00 - Acute cystitis without hematuria Assessment/Plan 63yo F with PMH of HTN, tachyarrhythmia s/p ablation, cervical CA, depression presenting after a syncopal episodes echo nl ef mild to mod mr ekg wnl c. duplex non obstructive neuro eval - vaso vagal near syncope will f/u as outp
== END 2018-07-02 12:00 | disposition home or self-care (01) ==
LOC: JER 16:52 → JERBED 19:24
PROVIDERS: ADMIT Internal Medicine; ATTEND Internal Medicine
PROC: 3E033GC Introduction of Other Therapeutic Substance into Peripheral Vein, Percutaneous Approach (ICD-10-PCS; principal; 2018-07-01)
PROC: 3E0337Z Introduction of Electrolytic and Water Balance Substance into Peripheral Vein, Percutaneous Approach (ICD-10-PCS; 2018-07-01)
DX: R55 Syncope and collapse (principal); N30.00 Acute cystitis without hematuria; I10 Essential (primary) hypertension; Z85.41 Personal history of malignant neoplasm of cervix uteri; F32.9 Major depressive disorder, single episode, unspecified
CPT/HCPCS: 36415; 71045-TC-FY; 80048; 80053; 81003; 82550; 83690; 83735; 84443; 84484; 85025; 85027; 93005; 93010; 93306-TC; 93880-TC; 99285-25; G0378; J7030

== ENCOUNTER 2019-02-07 08:30 | Day surgery (SDC) | payer BC ==
[2019-02-06 17:15] VITALS: BMI 24.9
[2019-02-07] MEDS ORDERED: PROPOFOL 20 ML ONE ×3 (10:29→11:35)
[2019-02-07] MEDS ORDERED: MIDAZOLAM HCL 2 MG/2 ML SINGLE DOSE VIAL ONE (10:30)
[2019-02-07] MEDS ORDERED: GENTAMICIN SO4 80 MG/2 ML VIAL ONE (11:05)
[2019-02-07] MEDS ORDERED: ceFAZolin SODIUM 1 GM VIAL IVPB ONE (11:07)
[2019-02-07] MEDS ORDERED: GENTAMICIN SO4 80 MG/2 ML VIAL IVPB ONE (11:07)
[2019-02-07] MEDS ORDERED: DEXAMETHASONE SOD PHOSPHATE 4 MG/1 ML VIAL ONE (11:14)
[2019-02-07] MEDS ORDERED: KETOROLAC TROMETHAMINE 30 MG/1 ML VIAL ONE (11:14)
[2019-02-07] MEDS ORDERED: BACITRACIN 15 GM TUBE TOPICAL OINTMENT ONE (11:32)
[2019-02-07] MEDS ORDERED: oxyCODONE HCL 5 MG TABLET PO PRN (11:58)
[2019-02-07] MEDS ORDERED: DEXTROSE 5%-0.45% SALINE 1,000 ML IV SCH (12:00)
--- NOTE | 2019-02-07 12:00 | OP ---
Operative Note - Note: Operative Date: 02/07/19 Pre-Operative Diagnosis: eroded suburethral sling Operation: cysto/sling removal Post-Operative Diagnosis: Same as Pre-op Surgeon: Gabino Parmar Anesthesia: General Operative Report Dictated: Yes
[2019-02-07] MEDS ORDERED: ONDANSETRON 4 MG/2 ML VIAL IVPUSH PRN (13:01)
[2019-02-07] MEDS ORDERED: LACTATED RINGERS SOLUTION 1,000 ML IV SCH (13:15)
[2019-02-07 15:22] VITALS: TEMP 97.9
[2019-02-07 17:41] VITALS: BP 129/68; PULSE 64
--- NOTE | 2019-02-07 19:54 | OP ---
DATE OF OPERATION: DATE OF DICTATION: 02/07/2019 PREOPERATIVE DIAGNOSIS: Eroded suburethral sling. POSTOPERATIVE DIAGNOSIS: Eroded suburethral sling. PROCEDURE: Cystoscopy, removal of eroded sling. SURGEON: Lane Cummings MD INDICATIONS: Patient is a 63-year-old female with a history of sling placement approximately 9 years ago for stress incontinence now with sling erosion and is taken to the OR for removal of the sling. Risks, benefits, alternatives discussed including potential injury to urethra and adjacent organs as well as recurrence of stress incontinence. DESCRIPTION OF PROCEDURE: After informed consent was obtained, patient was taken to the OR. Placed supine on table. Cardiac monitoring administered. General anesthesia established. She was prepped and draped in dorsal lithotomy position. A Loredo catheter was inserted to straight drainage, and a vagina weighted speculum was placed. At this point then Pitressin was injected into the vaginal epithelium, and an inverted U incision was created. In the tip of U included the part of the midurethra where there was evidence of sling erosion. The vaginal epithelium was dissected free from the undersurface of the vagina and then the sling was seen. It was dissected free from its surrounding urethral and periurethral tissue starting at the midline and extending bilaterally as it was going up towards the pubic symphysis. Each arm of the sling was then excised in its entirety and sent to Pathology. Entire specimen was sent to Pathology for analysis. All bleeding sites were cauterized. Loredo was then performed and cystoscopy was performed. There was no evidence of any bladder injury. Bilateral ureteral orifices were seen in their normal anatomic position. There was no evidence of any bladder or urethral injury. Cystoscope was then removed. The Loredo was then replaced. The vaginal epithelium was closed with interrupted 2-0 Vicryl suture, and a vaginal packing was in place. The patient was awoken from anesthesia and transferred to the recovery room in stable condition. There were no complications. Estimated blood loss was minimal. LANE CUMMINGS M.D. [id number]
--- NOTE | 2019-02-11 16:35 | PATH ---
Surgical Pathology Report Patient Name: BRENDA MELCHOR Med. Rec. #: [id number] /Age/Gender: 1955 (Age: 63) / F Account: [id number] Location: [facility] Taken: 02/07/2019 Received: 02/07/2019 Reported: 02/11/2019 Physicians: Gabino Parmar M.D. Specimen(s) Received FOREIGN BODY Clinical History Female stress incontinence Final Diagnosis SUBURETHRAL SLING, REMOVAL: MESH MATERIAL (SLING) WITH ADHERENT FIBROUS TISSUE WITH ASSOCIATED HISTIOCYTIC AND GIANT CELL REACTION. SMALL FRAGMENTS OF SQUAMOUS MUCOSA WITH MILD CHRONIC INFLAMMATION. Electronically Signed Radha Longoria M.D. Gross Description Received in formalin labeled "sling," are 2 domingo portions of soft tissue measuring 1.0 x 0.4 x 0.2 cm and 4.0 x 0.8 x 0.2 cm. The larger portion contains meshlike material, consistent with a sling. The smaller portion and a auto claim representative section of the larger portion is submitted in one cassette. /02/07/2019 [facility]02/07/2019
== END 2019-02-07 16:40 | disposition home or self-care (01) ==
LOC: JASU-SURG 08:30
PROVIDERS: ATTEND Urology
PROC: 0TSD0ZZ Reposition Urethra, Open Approach (ICD-10-PCS; principal; 2019-02-07 11:00)
DX: T83.89XA Other specified complication of genitourinary prosthetic devices, implants and grafts, initial encounter (principal); N39.3 Stress incontinence (female) (male)
CPT/HCPCS: 88300-TC; 94760